=== PATIENT | male | born 1955 | race Hispanic/Latino ===

== ENCOUNTER 2017-11-05 12:59 | Emergency (ER) | payer BC ==
[~2017-11-05] VITALS: Ht 167.6 cm; Wt 63.5 kg
== END 2017-11-05 14:10 | disposition home or self-care (01) ==
LOC: FSED 12:59
DX: R33.9 Retention of urine, unspecified (principal); R10.30 Lower abdominal pain, unspecified; R30.0 Dysuria; F17.210 Nicotine dependence, cigarettes, uncomplicated
CPT/HCPCS: 51700; 99283